=== PATIENT | female | born 1990 | race Caucasian/White ===

== ENCOUNTER 2017-10-13 22:48 | Outpatient (CLI) | payer MEDICAID ==
[~2017-10-13] VITALS: Ht 156.2 cm; Wt 68.0 kg
[2017-10-13] MEDS ORDERED: LR(*) 1000 ML BAG 1,000 ML IV SCH (22:49)
[2017-10-13] MEDS ORDERED: FAMOTIDINE(*) 20MG/50ML PREMIX 50 ML IVPB PRN (22:49)
[2017-10-13] MEDS ORDERED: OXYTOCIN 30 UNIT/D5LR 500 ML 500 ML IV PRN (22:49)
[2017-10-13] MEDS ORDERED: ceFAZolin(*) 2GM/D5W 50ML 50 ML IVPB PRN (22:49)
[2017-10-13] MEDS ORDERED: fentaNYL CITR 100 MCG/2 ML AMP IVP PRN (22:50)
[2017-10-13] MEDS ORDERED: LIDOCAINE/SOD BICARB 8.4% SYR SC PRN (22:50)
[2017-10-13] MEDS ORDERED: LIDOCAINE 1% LOCAL 300 MG/30ML INJ PRN (22:50)
[2017-10-13] MEDS ORDERED: cefOXitin SOD 2 GM VIAL 2 GM in NS(*) 0.9% 100 ML BAG 100 ML IVPB PRN (22:50)
[2017-10-13] MEDS ORDERED: METOCLOPRAMIDE 10 MG/2 ML SDV IVP PRN (22:50)
[2017-10-14 01:30] VITALS: BP 120/71; Ht 156.2 cm; Wt 68.0 kg
== END 2017-10-14 01:41 | disposition home or self-care (01) ==
LOC: L&D 22:48 → UNDOADMIN 22:48 → OB 22:48 → UNDODISIN 10-14 01:41 → L&D 10-14 01:41
PROVIDERS: ATTEND Obstetrics & Gynecology
DX: O47.1 False labor at or after 37 completed weeks of gestation (principal); Z3A.39 39 weeks gestation of pregnancy
CPT/HCPCS: 59025; G0463; 99213

== ENCOUNTER 2017-10-15 00:02 | Inpatient (IN) | payer MEDICAID ==
[~2017-10-15] VITALS: Ht 154.9 cm; Wt 68.0 kg
[2017-10-19] MEDS ORDERED: EPIDURAL KEYS XX PRN
[2017-10-19] MEDS ORDERED: OXYTOCIN 30 UNIT/D5LR 500 ML 500 ML IV PRN ×2 (00:04→03:13)
[2017-10-19] MEDS ORDERED: FAMOTIDINE(*) 20MG/50ML PREMIX 50 ML IVPB PRN (00:04)
[2017-10-19] MEDS ORDERED: METOCLOPRAMIDE 10 MG/2 ML SDV IVP PRN (00:05)
[2017-10-19] MEDS ORDERED: FLUSH 10 ML SYR IVP PRN (00:05)
[2017-10-19] MEDS ORDERED: LIDOCAINE/SOD BICARB 8.4% SYR SC PRN (00:05)
[2017-10-19] MEDS ORDERED: LIDOCAINE 1% LOCAL 300 MG/30ML INJ PRN (00:05)
[2017-10-19] MEDS ORDERED: cefOXitin/DEX(*) 2GM/50ML PREM 50 ML IVPB PRN (00:05)
[2017-10-19 00:20] VITALS: BP 118/72
[2017-10-19] MEDS ORDERED: DLR(*) 1000 ML BAG 1,000 ML IV PRN (00:43)
[2017-10-19] MEDS ORDERED: LIDOCAINE/PF 2% 200MG/10ML AMP 200 MG/10 ML AMPUL EPI PRN (00:50)
[2017-10-19] MEDS ORDERED: FENTANYL/ROPIVACAINE 100 ML BAG EPI PRN (00:50)
[2017-10-19] MEDS ORDERED: BUPIVACAINE 0.5% INJ 30ML VIAL EPI PRN (00:50)
[2017-10-19] MEDS ORDERED: LIDO/EPI 2% MPF 1:200,000 20ML EPI PRN (00:50)
[2017-10-19] MEDS ORDERED: fentaNYL CITR 100 MCG/2 ML AMP IT PRN (00:50)
[2017-10-19] MEDS ORDERED: BUPIVACAINE 0.25% MPF INJ EPI PRN (00:50)
[2017-10-19] MEDS ORDERED: ePHEDrine 25 MG/5 ML DISP.SYR IVP PRN (00:50)
[2017-10-19 01:03] VITALS: BP 111/66; Ht 154.9 cm; Wt 68.0 kg
[2017-10-19] MEDS: LR(*) 1000 ML BAG 1,000 ML IV SCH ×3 (01:09→10:49)
[2017-10-19 01:18] LABS: PLATELET COUNT, AUTOMATED 210 K/uL (150-450)
[2017-10-19] MEDS ORDERED: TERBUTALINE SULF 1 MG/ML VIAL SUBQ PRN (04:40)
[2017-10-19] MEDS ORDERED: PREN-127 PO (07:43)
[2017-10-19] MEDS: fentaNYL CITR 100 MCG/2 ML AMP IVP PRN ×2 (08:16→09:48)
[2017-10-19] MEDS ORDERED: GLYCERIN/WITCH HAZEL LEAF 1 PK TOP PRN (11:50)
[2017-10-19] MEDS ORDERED: BENZOCAINE 20% 60 ML BTL TP PRN (11:50)
[2017-10-19] MEDS ORDERED: INFLUENZA VIRUS VAC 0.5 ML SYR IM ONLY ONE (11:50)
[2017-10-19] MEDS ORDERED: MAGNESIUM HYDROXIDE* 30ML UDCP PO PRN (11:50)
[2017-10-19] MEDS ORDERED: HYDROCORTISONE 2.5% CR 30GM TB PR PRN (11:50)
[2017-10-19] MEDS ORDERED: HYDROmorphone HCL 2 MG TAB PO PRN (11:50)
[2017-10-19] MEDS ORDERED: ACETAMINOPHEN 325 MG TAB PO PRN (11:50)
[2017-10-19] MEDS ORDERED: LANOLIN OINT 7 GM TUBE TP PRN (11:50)
--- NOTE | 2017-10-19 12:03 | History & Physical ---
History of Present Illness Age of Patient: 26 : 1 Para or TPAL: 0 EDC per U/S: Oct 15, 2017 Estimated Gestational Age: 40.4 Chief Complaint Labor History of Present Illness Presented with report of loss of fluid at 2330. Contractions were initially mild with no progress by 3 AM exam so Pitocin augmentation initiated. Expecting . uncomplicated. Past Medical, Surgical, Family and Obstetric Histories reviewed. Please see ACOG chart. History Allergies: Coded Allergies: No Known Drug Allergies (Unverified , 10/13/17) Family History: Patient reports no known family medical history. Med Rec Home Meds Reported Medications Vits W-Ca,Fe,Fa(<1MG) ( VITAMINS) 1 Each Tablet, 1 EACH PO DAILY, TAB 10/19/17 Review of Systems All Systems Reviewed/Normal: Yes, Except as Noted Exam General Exam Vital Signs Vital Signs Date Time Temp Pulse Resp B/P (MAP) Pulse Ox O2 Delivery O2 Flow Rate FiO2 10/19/17 01:03 97.7 93 18 111/66 (81) 95 Room Air General Apperance: Alert/Awake/No Acute Distress Neuro: No Gross deficits Cardiovascular: Regular Rate and Rhythm Respiratory: No Respiratory Distress Abdomen: Soft, Non-Tender, Non-Distended Psychological: Alert & Oriented X3 Cervical Dialation: 1 Cervical Effacement (%): 80 Station: -1 Presentation: Vertex Fetus Heart Tone Variabilty: Moderate FHT Accelerations: 15X15 FHT Category: I Medical Decision Making Data Points Result Diagram: 10/19/17 0104 VTE Prophylasis: Adult Deep Vein Thrombosis/Pulmonary: No Pharmacological Contraindicati: Pt at Low Risk for VTE Mechanical Contraindications: Pt at Low Risk for VTE Assessment and Plan WARD ASSISTANT Plan: Routine Labor Care Problems: (1) 40 weeks gestation of (2) Normal labor RIVER HOBSON MD Oct 19, 2017 12:03
--- NOTE | 2017-10-19 12:04 | OB Delivery Note ---
Delivery Note Vaginal Delivery Type: Spont. Vaginal Delivery Delivery Date: Oct 19, 2017 Delivery Time: 11:21 Estimated Gestational Age(wks): 40 Sex: Male Weight (gms): 2940 [place] Apgars: 1 Minute (8), 5 Minute (9) Repair Needed: Laceration, 2nd Degree Estimated Blood Loss: 200 Delivery Complications: Laceration Notes: Presented with report of loss of fluid at 2330. Contractions were initially mild with no progress by 3 AM exam so Pitocin augmentation initiated. Was 3.5 cm by 0643, 7 cm by 0854 and completely dilated by 1028. No regional anesthesia placed. Pushing effectively brought baby in MILEY position delivered over second degree laceration. Shoulders delivered spontaneously and the rest of baby delivered without incident. Placenta delivered intact and spontaneous. Repair with 2-0 chromic without complication. Porcelain Finish Sprayer in Attendence: No Copies to: RIVER HOBSON MD, TRAVIS MD Oct 19, 2017 12:04
[2017-10-19] MEDS ORDERED: LIDOCAINE 1% LOCAL 300 MG/30ML 30 ML ONE (12:25)
[2017-10-19] MEDS: IBUPROFEN 800 MG TAB PO SCH ×2 (12:34→21:14)
[2017-10-19 17:50] VITALS: BP 127/66
[2017-10-19 20:30] VITALS: BP 135/68
[2017-10-19] MEDS: DOCUSATE CALCIUM 240 MG CAP PO SCH (21:14)
[2017-10-20 04:00] VITALS: BP 103/59
[2017-10-20] MEDS: IBUPROFEN 800 MG TAB PO SCH ×2 (05:18→12:57)
[2017-10-20 07:30] VITALS: BP 117/64
[2017-10-20] MEDS: DOCUSATE CALCIUM 240 MG CAP PO SCH (09:22)
--- NOTE | 2017-10-20 10:43 | OB/GYN Progress Note ---
OB Subjective Progress Notes Subjective Doing well. Pain controlled and bleeding light. No problems. GI: NEG Nausea : Voiding Well Pain: Mild OB Objective Physical Exam Vital Signs Date Time Temp Pulse Resp B/P (MAP) Pulse Ox O2 Delivery O2 Flow Rate FiO2 10/20/17 07:30 97.9 95 18 117/64 (81) 95 Room Air General Appearance: Alert/Awake/No Acute Distress Neurological: No Gross deficits Cardiovascular: Normal Rhythm & Peripheral Pulses, Regular Rate and Rhythm Respiratory: No Respiratory Distress, Clear to Auscultation Abdomen: Soft, Non-Tender, Non-Distended, Fundus Firm, Non-Tender Integumentary: Skin Intact without Lesions or Rash Psychological: Alert & Oriented X3, Appropriate Mood & Affect Result Diagram: 10/20/17 0704 Assessment and Plan DECISION SUPPORT MANAGER Plan: Discharge Home Today Problems: (1) 40 weeks gestation of (2) Normal labor RIVER HOBSON MD Oct 20, 2017 10:43
[2017-10-20] MEDS ORDERED: IBUP800T37 PO (10:44)
--- NOTE | 2017-10-20 10:46 | OB/GYN Discharge Summary ---
Discharge Summary Reason for Hosp/Final Diag: (1) 40 weeks gestation of (2) Normal labor Lates Vital Signs Vital Signs Date Time Temp Pulse Resp B/P (MAP) Pulse Ox O2 Delivery O2 Flow Rate FiO2 10/20/17 07:30 97.9 95 18 117/64 (81) 95 Room Air Weight (Pounds): 150 Result Diagram: 10/20/17 0704 Condition: Improved Discharge: Home, Self Longterm Meds Reported Medications Vits W-Ca,Fe,Fa(<1MG) ( VITAMINS) 1 Each Tablet, 1 EACH PO DAILY, TAB 10/19/17 Follow up Referrals: INTERNET MARKETING ANALYST - In 6 Weeks @ [facility] with Spencer Peguero Md Follow up with: Dr. Peguero [phone] Follow up in: 6 wks PP or PO Discharge Diet: As Tolerates Discharge Activity: As Tolerates, No Heavy Lifting x 6 wks, No Heavy Lifting > 10lb, Pelvic Rest Copies to: SPENCER PEGUERO MD, TRAVIS MD Oct 20, 2017 10:46
[2017-10-21] MEDS ORDERED: MEASLES,MUMP,RUBELLA VAC 0.5ML SUBQ ONE (09:00)
[2017-10-21] MEDS ORDERED: DIPHTH/TETANUS/ACEL. PERTUSSIS IM ONLY ONE (09:00)
== END 2017-10-20 19:05 | disposition home or self-care (01) | DRG 775 ==
LOC: OB 10-19
PROVIDERS: ADMIT Obstetrics & Gynecology; ATTEND Obstetrics & Gynecology
PROC: 10E0XZZ Delivery of Products of Conception, External Approach (ICD-10-PCS; principal; 2017-10-19)
PROC: 0KQM0ZZ Repair Perineum Muscle, Open Approach (ICD-10-PCS; 2017-10-19)
DX: O70.1 Second degree perineal laceration during delivery (principal); Z37.0 Single live birth; Z3A.40 40 weeks gestation of pregnancy
CPT/HCPCS: 36415; 85025; 85027; 86850; 86900; 86901; J2001; J2590; J3010; J7120